=== PATIENT | male | born 1955 | race Caucasian/White ===

== ENCOUNTER 2025-04-10 13:00 | Outpatient (CLI) | payer MEDICARE | END 2025-04-10 13:01 | disposition home or self-care (01) | LOC: BICCT 13:00 | PROVIDERS: ATTEND Family Medicine | DX: Z12.2 Encounter for screening for malignant neoplasm of respiratory organs (principal); Z87.891 Personal history of nicotine dependence | CPT/HCPCS: 71271 ==